=== PATIENT | male | born 1980 | race Two or more races ===

== ENCOUNTER 2024-08-03 23:48 | Emergency (ER) | payer MEDICAID, SELFPAY ==
[2024-08-03 23:49] VITALS: BMI 26.4
[2024-08-04 00:34] VITALS: BP 132/82; PULSE 79; RESP 18; TEMP 36.8; O2SAT 97
--- NOTE | 2024-08-04 00:41 | XR_ITS ---
Examination: Cervical spine 3 views Technique one AP lateral coned AP odontoid cervical spine 3 views Exam date and time: 03/04/2024 1249 hrs. Indications: Neck pain after falling 2 weeks ago with injury to the neck,. Findings: Straightening normal cervical lordosis No cervical fracture Mild to moderate degenerative disc disease C5-C6 C6-C7 Intact odontoid Impression: No cervical fracture
--- NOTE | 2024-08-04 00:43 | PD.EDBACK ---
ED Back Injury Pain RME/HPI General Chief Complaint: Extremity Injury, Upper Stated Complaint: LEFT ARM PAIN AND TINGLING Time Seen by Provider: 08/04/24 00:25 Source: patient Arrival date/time: 08/03/24 23:48 44-year-old male presents emergency department complaining of pain that starts on the left side of neck and travels down all to his left arm which causes temporary tingling. 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 Mode of arrival: ambulatory Limitations: no limitations Related Data Previous Rx's ?Medication ?Instructions ?Recorded hydrocodone 5 mg-acetaminophen 325 1 tab PO BID PRN pain #7 tabs 08/04/24 mg tablet Allergies Allergy/AdvReac Type Severity Reaction Status Date / Time No Known Allergies Allergy Verified 02/13/21 11:52 Review of Systems Review of Systems Systems Reviewed: All systems reviewed, normal except as documented Constitutional Constitutional: Reports system reviewed and no additional complaints, except as documented, Denies body ache(s), Denies chills and Denies fever(s) Eyes Eyes: Reports system reviewed and no additional complaints, except as documented and Denies change in vision ENT Ears, Nose, Mouth, and Throat: Reports system reviewed and no additional complaints, except as documented, Denies disequilibrium, Denies dizziness, Reports neck pain, Denies sore throat and Denies vertigo Cardiovascular Cardiovascular: Reports system reviewed and no additional complaints, except as documented, Denies chest pain and Denies dyspnea Respiratory Respiratory: Reports system reviewed and no additional complaints, except as documented, Denies chest congestion, Denies cough and Denies dyspnea Gastrointestinal Gastrointestinal: Reports system reviewed and no additional complaints, except as documented, Denies abdominal pain, Denies nausea and Denies vomiting Musculoskeletal Musculoskeletal: Reports system reviewed and no additional complaints, except as documented, Denies abnormal gait, Denies arthralgias, Reports neck pain and Reports radiating pain into limb Integumentary/Breasts Skin/Breast: Reports system reviewed and no additional complaints, except as documented, Denies erythema, Denies rash and Denies wounds Neurologic Neurologic: Reports system reviewed and no additional complaints, except as documented, Denies abnormal gait, Denies disequilibrium, Denies dizziness and Denies vertigo Past Medical History Past Medical History CARDIAC: Negative Congestive Heart Failure RESPIRATORY: Negative Chronic Obstructive Pulmonary Disease (COPD) GENITOURINARY: Negative Renal Disease ENDOCRINE: Negative Diabetes Mellitus Type 1 or Diabetes Mellitus Type 2 Social History SMOKING STATUS: Never smoker ED Exam General Limitations: Present no limitations General appearance: Present alert and in no apparent distress Head Head exam: Present atraumatic Eye Eye exam: Present normal appearance, PERRL and EOMI ENT ENT exam: Present normal exam, normal oropharynx and mucous membranes moist Neck Neck exam: Present normal inspection, full ROM and trachea midline Chest Chest inspection: Present normal inspection and symmetric chest wall rise Respiratory Respiratory exam: Present normal lung sounds bilaterally Cardiovascular Cardiovascular exam: Present regular rate, normal rhythm and normal heart sounds Abdominal Exam Abdominal exam: Present soft and normal bowel sounds Extremities Exam Extremities exam: Present normal inspection and full ROM Back Exam Back exam: Present normal inspection and full ROM Neurological Exam Neurological exam: Present alert, oriented X3 and CN II-XII intact Psychiatric Psychiatric exam: Present normal affect and normal mood Skin Skin exam: Present warm, dry, intact and normal color Course Quality Measures none Orders Category Date Time Status XR cervical spine 2-3V Stat Exams 08/04/24 00:41 Taken CYCLObenzaPRINE [Flexeril] Med 08/04/24 00:41 Discontinued 10 mg PO X1 ONE Ketorolac Inj [Toradol Inj] Med 08/04/24 00:41 Discontinued 30 mg IM X1 ONE Vital Signs Vital signs: Vital Signs Temperature 98.2 F 08/04/24 00:34 Pulse Rate 79 08/04/24 00:34 Respiratory Rate 18 08/04/24 00:34 Blood Pressure 132/82 H 08/04/24 00:34 Pulse Oximetry (%) 97 08/04/24 00:34 Oxygen Delivery Method Room Air 08/04/24 00:34 97% room air within normal limits Back Pain / Injury MDM Narrative MDM Narrative:: 44-year-old male presents emergency department complaining of pain that starts on the left side of neck and travels down all to his left arm which causes temporary tingling. 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 Full active range of motion to neck and left upper extremity. Patient denies any recent injuries. Patient left upper extremity neurovascular intact. X-ray cervical spine pending radiologist read patient did not want to wait for result and requested to be discharged. Patient appears nontoxic and is hemodynamic stable. Patient discharged with pain medication and instructed to return immediately emergency department for any worsening symptoms or as needed. Instructed to follow-up on x-ray report tomorrow with primary care provider. Patient data External records reviewed:: [facility] previous records Clinical information provided by:: patient Social determinants that could affect healthcare access:: none Patient has the following chronic illnesses:: None How is presenting disease/condition affected by chronic disease/condition?: no chronic disease Evaluation data The following diagnostics were reviewed and interpreted by me:: radiology exam(s) Lab and/or radiology exams considered but not ordered:: Ordered Interpretation Summary: Interpreted by me Medications / Prescriptions Medications or Prescriptions considered but not ordered:: Ordered Medication administrations:: Medication Administration History Discontinued Medications Cyclobenzaprine HCl (Cyclobenzaprine 5 Mg Tablet) 10 mg PO X1 ONE Stop: 08/04/24 00:42 Last Admin: 08/04/24 00:49 Dose: 10 mg Documented By: OA Ketorolac Tromethamine (Ketorolac Inj 60 Mg/2 Ml Vial) 30 mg IM X1 ONE Stop: 08/04/24 00:42 Last Admin: 08/04/24 00:50 Dose: 30 mg Documented By: OA Given Consultations Consultation(s) initiated? (list below): No Diagnosis Differential diagnosis back pain/injury: thoracic back pain, discitis and other (Cervical fracture, ) Most likely diagnosis given after review of the tests above:: Neck and shoulder pain Admission Indicated Admission indicated?: not indicated Admission Request Was there a request for admission?: No Disposition Plan Disposition Plan: Discharge Discharge Attestation Discharge Attestation: The patient and all family members were given an opportunity to ask questions and understood the discharge instructions. Discharge instructions specifically effects, indications for sooner follow up or return to the emergency department, and the expected course of current diagnosis. Patient condition: Stable Discharge Plan Plan Patient Disposition: HOME (Self Care) Disposition Comment: Stable Prescriptions/Referrals Prescriptions/Med Rec: New hydrocodone-acetaminophen 5-325 mg tablet 1 tab PO BID MDD 2 tabs PRN (Reason: pain) Qty: 7 0RF Referrals: Temporary Provider,ED [Primary Care Provider] - In 1 week Problem List Clinical Impression: Neck and shoulder pain Patient/Caregiver Discharge Instructions Discharge Activity: activity as tolerated Education Materials: Anatomy of a Normal Spine, Back Basics: A Healthy Spine, Back Exercises: Arm Reach Additional Instructions: Take medication as prescribed. Follow-up with primary care provider in 2 to 3 days and request referral to physical therapy or MRI of cervical spine if symptoms persist. Return to emergency department for any worsening symptoms or as needed. Print Language: Greenlandic Stand Alone Forms: Tavia Award Info., Patient Portal Info Letter PA/WASHTUB WORKER Supervising Physician PA/WASHTUB WORKER Supervising Physician: Dr. Saba
[2024-08-04] MEDS: CYCLObenzaPRINE 5 MG TABLET 10 MG PO (00:49)
[2024-08-04] MEDS: KETOROLAC INJ 60 MG/2 ML VIAL 30 MG IM (00:50)
[2024-08-04 03:05] VITALS: BP 128/76; PULSE 70; RESP 18; TEMP 36.8; O2SAT 98
--- NOTE | 2024-08-04 03:12 | PRELIM_ITS ---
Radiographs of the cervical spine 3 views). August 04, 2024 0046 hoursClinical history: Pain .No pr ior study is available for comparison. Findings:The vertebral body heights and alignment are maintain ed. There is no fracture or subluxation. Mild degenerative changes of the spine are noted, in the f orm of decreased intervertebral disc spaces, marginal osteophytes and uncovertebral joint degenerati on. The atlantoaxial joint is unremarkable. There is no prevertebral or paravertebral soft tissue abn ormality. Impression:Mild degenerative changes. Report Electronically Signed By: Amilcar Cook 2023 3:11:51 AM [EST]
== END 2024-08-04 03:06 | disposition home or self-care (01) ==
LOC: SERX 08-04 03:16
PROVIDERS: Emergency Provider Emergency Medicine; PCP Family Medicine
DX: M54.2 Cervicalgia (principal); M25.512 Pain in left shoulder; R20.2 Paresthesia of skin
CPT/HCPCS: 72040; 96372; 99283; J1885; A9270